=== PATIENT | male | born 2000 | race Two or more races ===

== ENCOUNTER 2024-07-27 14:16 | Emergency (ER) | payer OTHER ==
[~2024-07-27] VITALS: Ht 177.8 cm; Wt 77.2 kg
[2024-07-27] MEDS: METOCLOPRAMIDE INJ 10MG/2ML VIAL IV ONE (17:05)
[2024-07-27] MEDS: NS 1,000 ML IV ONE ×2 (17:05→21:13)
[2024-07-27 18:21] LABS: BASO % 0.3 % (0.0-1.0); EOS # 0.1 10^3/uL (0.0-0.5); EOS % 0.7 % (0.0-3.0); HEMATOCRIT 45.6 % (42.0-52.0); HEMOGLOBIN 15.1 g/dl (13.5-17.5); LYMPH # 2.7 10^3/uL (1.5-5.0); LYMPH % 31.1 % (24.0-44.0); MEAN CORPUSCULAR HEMOGLOBIN 30.1 pg (27.0-33.0); MEAN CORPUSCULAR HGB CONC 33.1 g/dl (32.0-36.5); MONO # 0.5 10^3/uL (0.0-0.8); MONO % 5.5 % (2.0-8.0); NEUTROPHILS # 5.4 10^3/uL (1.5-8.5); NEUTROPHILS % 61.9 % (36.0-66.0); PLATELET COUNT, AUTOMATED 149 10^3/uL (150-450); RED BLOOD COUNT 5.01 10^6/uL (4.30-6.10); WHITE BLOOD COUNT 8.7 10^3/uL (4.0-10.0)
[2024-07-27 18:23] LABS: CK-MB VALUE MASS 2.6 NG/ML (<3.6)
[2024-07-27 18:25] LABS: BLOOD UREA NITROGEN 11 MG/DL (9-23); CALCIUM LEVEL 7.3 MG/DL (8.5-10.1); CARBON DIOXIDE LEVEL 23 MMOL/L (20-31); CHLORIDE LEVEL 114 MMOL/L (98-107); CPK CREATINE PHOSPHOKINASE 411 U/L (46-171); CREATININE FOR GFR 0.96 MG/DL (0.70-1.30); GLOMERULAR FILTRATION RATE > 60.0 (>60); GLUCOSE, FASTING 78 MG/DL (60-100); MB/CK RELATIVE INDEX 0.63 (< OR =4); SODIUM LEVEL 144 MMOL/L (136-145)
[2024-07-27 19:32] LABS: MAGNESIUM LEVEL 1.6 MG/DL (1.8-2.4)
[2024-07-27] MEDS: POTASSIUM CHLORIDE 10MEQ SR TABLET PO ONE ×2 (19:37→21:13)
[2024-07-27] MEDS: MAG SULF 1GM/100ML (MAG RUN) 1 GM in IV 1 EA IV ONE (20:20)
[2024-07-27 20:23] LABS: CK-MB VALUE MASS 3.2 NG/ML (<3.6)
[2024-07-27 20:27] LABS: MB/CK RELATIVE INDEX 0.6 (< OR =4)
[2024-07-27 22:23] VITALS: BP 129/72; TEMP 98.1; O2SAT 100
== END 2024-07-27 22:27 | disposition home or self-care (01) ==
LOC: M ED 14:16
DX: E83.42 Hypomagnesemia (principal); R74.8 Abnormal levels of other serum enzymes; E87.6 Hypokalemia; R00.1 Bradycardia, unspecified; I45.10 Unspecified right bundle-branch block
CPT/HCPCS: 36415; 80048; 82550; 82553; 83735; 83874; 84484; 85025; 93005; 96361; 96365; 96366; 96375; 99284; J2765; J3475

== ENCOUNTER 2024-08-29 09:39 | Emergency (ER) | payer OTHER ==
[~2024-08-29] VITALS: Ht 175.3 cm; Wt 76.0 kg
[2024-08-29 11:23] LABS: RSV AMPLIFICATION NEGATIVE (NEGATIVE)
[2024-08-29] MEDS ORDERED: AMOX875T2 PO (12:50)
[2024-08-29] MEDS ORDERED: BENZ200C70 PO (12:50)
[2024-08-29] MEDS: BENZONATATE 100MG CAPSULE PO ONE (13:00)
[2024-08-29 13:04] VITALS: O2SAT 96
[2024-08-29 13:07] VITALS: BP 146/77; TEMP 97.2; O2SAT 99
== END 2024-08-29 13:12 | disposition home or self-care (01) ==
LOC: M ED 09:39
DX: J20.6 Acute bronchitis due to rhinovirus (principal); J01.10 Acute frontal sinusitis, unspecified; B34.1 Enterovirus infection, unspecified; F10.10 Alcohol abuse, uncomplicated; Z79.2 Long term (current) use of antibiotics; Z79.899 Other long term (current) drug therapy

== ENCOUNTER → 2025-01-10 | Outpatient (CLI) | payer OTHER ==
[~2025-01-10] MED LIST: AMOX875T2 PO; BENZ200C70 PO
== END ==
LOC: M CARPUL 07:47
DX: R06.00 Dyspnea, unspecified (principal)

== ENCOUNTER → 2025-08-20 | Outpatient (CLI) | payer OTHER ==
[~2025-08-20] MED LIST changes: +METHACHOLINE KIT (6 VIAL.NEB PREMIX) INH ONE
== END ==
LOC: M CARPUL 03-07 09:44
DX: R06.00 Dyspnea, unspecified (principal)